=== PATIENT | female | born 1950 | race Caucasian/White ===

== ENCOUNTER 2019-01-11 05:54 | Emergency (ER) | payer MEDICARE, OTHER ==
[~2019-01-11] VITALS: Ht 152.4 cm; Wt 76.8 kg
[2019-01-11] MEDS ORDERED: LISI-538 (06:08)
[2019-01-11] MEDS ORDERED: FLUO10CA8 (06:08)
[2019-01-11] MEDS ORDERED: DICY20TA11 (06:08)
[2019-01-11] MEDS ORDERED: ASPI81CH33 PO (06:08)
[2019-01-11] MEDS ORDERED: ZOLP10TA2 (06:08)
[2019-01-11] MEDS ORDERED: ACETAMINOPHEN 500 MG TAB PO ONE (06:30)
[2019-01-11 08:03] VITALS: BP 138/78
--- NOTE | 2019-01-18 11:31 | REP ---
UNILATERAL LEFT RIBS, PA CHEST, FIVE VIEWS: HISTORY: Left side injury. The lungs are clear. The heart is normal in size. The pulmonary vasculature is normal in appearance. There are fractures of the left 6th and 8th ribs. IMPRESSION: There are fractures of the left 6th and 8th ribs. Unreviewed
== END 2019-01-11 08:05 | disposition home or self-care (01) ==
LOC: M ED 05:54
DX: S20.212A Contusion of left front wall of thorax, initial encounter (principal); W01.198A Fall on same level from slipping, tripping and stumbling with subsequent striking against other object, initial encounter; Y92.012 Bathroom of single-family (private) house as the place of occurrence of the external cause; J44.9 Chronic obstructive pulmonary disease, unspecified; I10 Essential (primary) hypertension; E78.5 Hyperlipidemia, unspecified; K58.9 Irritable bowel syndrome, unspecified; Z79.899 Other long term (current) drug therapy; Z79.82 Long term (current) use of aspirin; Z88.0 Allergy status to penicillin; Z88.1 Allergy status to other antibiotic agents; Z88.2 Allergy status to sulfonamides; Z88.8 Allergy status to other drugs, medicaments and biological substances; Z87.891 Personal history of nicotine dependence